=== PATIENT | male | born 1980 | race Caucasian/White ===

== ENCOUNTER 2024-02-17 15:38 | Outpatient (RCR) | payer OTHER ==
[~2024-02-17] VITALS: Ht 160 cm; Wt 79.5 kg
[2024-02-17 16:02] VITALS: BP 148/98
[2024-02-17] MEDS ORDERED: NOVOLOG FLEX100 U/ML SQ (16:52)
[2024-02-17] MEDS ORDERED: GOOD SENSE ASPI81 M1 PO (16:53)
[2024-02-17] MEDS ORDERED: METFORMIN ER500 MG PO (16:53)
[2024-02-17] MEDS ORDERED: OZEMPIC0.25 MG/02 (16:53)
[2024-02-17] MEDS ORDERED: BACTRIM DS TAB1 EACH PO (16:55)
[2024-02-17] MEDS ORDERED: TYLENOL EXTRA500 M3 PO (16:56)
--- NOTE | 2024-02-17 16:56 | NUR ---
PT ARRIVES AMBULATORY WITH LIMP NOTED. OFFERRED A WHEEL CHAIR, BUT HE INSISTS HE IS FINE TO WALK. C/O PAIN IN RT KNEE. RT INNER KNEE AREA NOTED TO BE RED AND HOT TO TOUCH AND VERY TENDER. USED A MARKER TO CAROLYN EDGES OF ERRYTHEMA. PICTURES AND MEASUREMENTS TAKEN WITH PT'S CONSENT. PT CONSENTS TO HAVING THE WORK COMP NURSE IN THE ROOM DURING WOUND TX. RT INNER KNEE WOUND WAS DEBRIDED, CLEANED AND DRESSED BY Nati ROBERTSON APRN. SEE PROVIDER NOTE. PT GRATEFUL FOR CARE AND LEFT FACILITY AMBULATORY. APPT TO RETURN ON 02/20/24 AT 9AM
== END 2024-03-01 | disposition home or self-care (01) ==
LOC: AMSURD
DX: S81.001D Unspecified open wound, right knee, subsequent encounter (principal); L03.115 Cellulitis of right lower limb
CPT/HCPCS: 18893; 18897; A6197